=== PATIENT | male | born 1965 | race Caucasian/White ===

== ENCOUNTER 2016-10-16 22:39 | Emergency (ER) | payer MEDICARE, OTHER ==
[2016-10-16 23:49] LABS: BUN/CREATININE RATIO 15 (0-10)
[2016-10-17 00:20] LABS: HEMOGLOBIN 11.9 gm/dl (14.0-17.5); RED BLOOD COUNT 4.23 M/UL (4.20-5.50); WHITE BLOOD COUNT 12.1 K/UL (4.5-11.0)
[2017-03-17] MEDS ORDERED: COREG 3.125M3.125 MG PO (07:57)
[2017-03-17] MEDS ORDERED: LEVOTHYROXINE50 MCG PO (07:57)
[2017-03-17] MEDS ORDERED: LORATADINE-D 11 EACH PO (07:58)
[2017-03-17] MEDS ORDERED: NOVOLOG MI100 UNIT/2 SQ (07:59)
[2017-03-17] MEDS ORDERED: RAMIPRIL2.5 MG PO (08:00)
[2017-03-17] MEDS ORDERED: SIMVASTATIN20 MG PO (08:00)
[2017-03-17] MEDS ORDERED: TRESIBA SC (08:02)
[2017-03-17] MEDS ORDERED: XARELTO20 MG PO (08:03)
[2017-03-17] MEDS ORDERED: ULORIC 40 MG TA40 MG PO (08:03)
[2017-03-17] MEDS ORDERED: SOTALOL80 MG PO (10:01)
== END 2016-10-17 01:20 | disposition home or self-care (01) ==
LOC: ER1 22:39
PROVIDERS: Emergency Medicine
DX: S39.012A Strain of muscle, fascia and tendon of lower back, initial encounter (principal); E11.9 Type 2 diabetes mellitus without complications; X50.1XXA Overexertion from prolonged static or awkward postures, initial encounter; Y93.39 Activity, other involving climbing, rappelling and jumping off; Z88.0 Allergy status to penicillin; Z88.5 Allergy status to narcotic agent; Z79.899 Other long term (current) drug therapy; I48.91 Unspecified atrial fibrillation
CPT/HCPCS: 36415; 71010; 72100; 80048; 83735; 83880; 84484; 85025; 85610; 85730; 93005; 96374; 96375; 96376; 99284; J1885; J2405

== ENCOUNTER 2021-06-11 15:06 | Emergency (ER) | payer MEDICARE, OTHER ==
[~2021-06-11 15:06] MED LIST: COREG 3.125M3.125 MG PO; LEVOTHYROXINE50 MCG PO; LORATADINE-D 11 EACH PO; NOVOLOG MI100 UNIT/2 SQ; RAMIPRIL2.5 MG PO; SIMVASTATIN20 MG PO; SOTALOL80 MG PO; TRESIBA SC; ULORIC 40 MG TA40 MG PO; XARELTO20 MG PO
[2021-06-11 18:53] LABS: HEMOGLOBIN 14.6 gm/dl (14.0-17.5); RED BLOOD COUNT 5.14 M/UL (4.20-5.50); WHITE BLOOD COUNT 10.8 K/UL (4.5-11.0)
[2021-06-11 19:16] LABS: BUN/CREATININE RATIO 16 (0-10)
[2021-06-11] MEDS ORDERED: PROVENTIL HFA6.7 GM INH (23:42)
[2021-06-11] MEDS ORDERED: DOXYCYCLINE HY100 MG PO (23:42)
== END 2021-06-12 01:34 | disposition home or self-care (01) ==
LOC: ER1 15:06
PROVIDERS: Physician Assistant
DX: J18.9 Pneumonia, unspecified organism (principal); E11.9 Type 2 diabetes mellitus without complications; E78.5 Hyperlipidemia, unspecified; I10 Essential (primary) hypertension; Z20.822 Contact with and (suspected) exposure to COVID-19
CPT/HCPCS: 36600; 71045; 80053; 82803; 85025; 87040; 93005; 94640; 94664; 94760; 96374; 96375; 99285; J0696; J2930; U0002